=== PATIENT | male | born 1950 | race Caucasian/White ===

== ENCOUNTER 2019-03-10 14:22 | Outpatient (REF) | payer OTHER, SELFPAY ==
[2019-03-10 14:51] LABS: Anion Gap 8.8 mmol/L (3-11); BUN 21 mg/dL (7-18); CO2 28.2 mmol/L (21.0-32.0); CREATININE 1.07 mg/dL (0.70-1.30); Calcium 8.7 mg/dL (8.5-10.1); Calculated LDL 117 mg/dL; Chloride 104 mmol/L (98-107); Cholesterol 188 mg/dL (50-200); Glucose 110 mg/dL (70-100); HDL Cholesterol 46 mg/dL (40-60); Hemoglobin A1C 5.8 % (4.5-6.2); Potassium 4.3 mmol/L (3.5-5.1); Sodium 141 mmol/L (136-145); Triglyceride 127 mg/dL (30-150)
== END 2019-03-10 14:42 ==
LOC: NCHCN 14:22
PROVIDERS: PCP Family Medicine; Visit Provider Family Medicine
DX: R73.03 Prediabetes (principal); E66.9 Obesity, unspecified
CPT/HCPCS: 80048; 80061; 83036

== ENCOUNTER 2023-03-15 15:43 | Outpatient (REF) | payer MEDICARE, SELFPAY ==
[2023-03-15 16:12] LABS: HCT 46.7 % (40.0-50.0); HGB 15.7 g/dL (13.5-17.5); MCH 28.5 pg (27.0-33.0); MCHC 33.6 % (32.0-36.0); MCV 85 fL (80-95); MPV 9.9 fL (8.0-11.0); Platelet Count 235 10^3/uL (130-400); RDW 12.8 % (11.8-14.1); RDW-SD 39.4 fL; WBC 7.15 10^3/uL (4.4-10.8)
[2023-03-15 16:53] LABS: ALT 28 U/L (16-63); AST 27 U/L (15-37); Albumin 3.3 g/dL (3.4-5.0); Alkaline Phosphatase 55 U/L (46-116); Anion Gap 10.2 mmol/L (3-11); BUN 17 mg/dL (7-18); Bilirubin, Total 0.4 mg/dL (0.2-1.0); CO2 24.8 mmol/L (21.0-32.0); Calculated LDL 108 mg/dL (<100); Chloride 104 mmol/L (98-107); Cholesterol 179 mg/dL (<200); Estimated GFR 79.47 (mL/min/1.73m2); Glucose 111 mg/dL (74-106); HDL Cholesterol 48 mg/dL (40-60); Potassium 4.2 mmol/L (3.5-5.1); Sodium 139 mmol/L (136-145); Total Protein 6.9 g/dL (6.4-8.2); Triglyceride 115 mg/dL (<150)
== END 2023-03-15 15:44 | disposition home or self-care (01) ==
LOC: NCHCN 15:43
PROVIDERS: PCP Family Medicine; Visit Provider Physician Assistant
DX: Z00.00 Encounter for general adult medical examination without abnormal findings (principal); R73.03 Prediabetes; Z68.32 Body mass index [BMI] 32.0-32.9, adult
CPT/HCPCS: 80053; 80061; 85027

== ENCOUNTER 2025-01-19 15:26 | Outpatient (REF) | payer MEDICARE, SELFPAY ==
[2025-01-19 15:52] LABS: ALT 28 U/L (16-63); AST 30 U/L (15-37); Albumin 3.5 g/dL (3.4-5.0); Alkaline Phosphatase 56 U/L (46-116); Anion Gap 6.1 mmol/L (3-11); BUN 13 mg/dL (7-18); Bilirubin, Total 0.4 mg/dL (0.2-1.0); CO2 27.9 mmol/L (21.0-32.0); Calcium 8.6 mg/dL (8.5-10.1); Chloride 104 mmol/L (98-107); Estimated GFR 78.49 (mL/min/1.73m2); Glucose 110 mg/dL (74-106); Potassium 4.0 mmol/L (3.5-5.1); Sodium 138 mmol/L (136-145); Total Protein 7.0 g/dL (6.4-8.2)
[2025-01-19 17:07] LABS: Hemoglobin A1C 5.8 % (<5.7)
== END 2025-01-19 15:27 | disposition home or self-care (01) ==
LOC: NCHCN 15:26
PROVIDERS: PCP Family Medicine; Visit Provider Physician Assistant
DX: R73.03 Prediabetes (principal)
CPT/HCPCS: 80053; 83036